=== PATIENT | male | born 2000 | race Caucasian/White ===

== ENCOUNTER 2024-01-09 07:39 | Emergency (ER) | payer SELFPAY ==
[2024-01-09 07:42] VITALS: BP 138/79; PULSE 70; RESP 18; TEMP 36.5; O2SAT 99
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
[2024-01-09] MEDS: Albuterol HFA 8 GM 60 PUFF INH IH (08:19)
[2024-01-09] MEDS: Dexamethasone 10 MG/ML VIAL PO (08:19)
[2024-01-09] MEDS: Inhaler, Assist Device 1 EACH MC (08:19)
[2024-01-09 08:26] VITALS: BP 138/79; PULSE 70; RESP 18; TEMP 36.5; O2SAT 99
== END 2024-01-09 08:31 | disposition home or self-care (01) ==
LOC: ER 08:24
PROVIDERS: Emergency Provider Emergency Medicine; PCP Nurse Practitioner Family
DX: J06.9 Acute upper respiratory infection, unspecified (principal); F17.210 Nicotine dependence, cigarettes, uncomplicated; F17.290 Nicotine dependence, other tobacco product, uncomplicated
CPT/HCPCS: 87426; 99283; J1100